=== PATIENT | female | born 1980 | race African-American/Black ===

== ENCOUNTER 2025-01-13 13:24 | Emergency (ER) | payer OTHER, SELFPAY ==
[2025-01-13 13:28] VITALS: BP 142/94
--- NOTE | 2025-01-13 14:18 | ED.GENMED ---
History of Present Illness
General
Chief Complaint: Breathing Problem
Time Seen by Provider: 01/13/25 14:18
History of Present Illness
History of Present Illness:
FOCUSED PAST MEDICAL HISTORY
- The patient has a history of hyperlipidemia
REVIEW OF OLD RECORDS
- No old records available for review
Note:
CHIEF COMPLAINT(S)
Difficulty breathing, sensation of throat constriction.
HISTORY OF PRESENT ILLNESS
The patient is a 44-year-old female with a history of a hysterectomy, presenting with difficulty breathing and a sensation of something in the throat for the past eight months. The symptoms began with a feeling of coldness in the throat, progressing
to a sensation of breathing difficulty when sitting up, described as 'gasping for air.' The patient notes that laying down aggravates the feeling of something in the throat. On the right side of the throat, the patient reports feeling a lump and
experiences difficulty swallowing food, sometimes choking as it goes down. A computed tomography (CT) scan of the neck performed earlier in December revealed no abnormalities. An ear, nose, and throat (ENT) specialist performed a swallow test, which
was unremarkable. Despite these evaluations, the patient continues to experience symptoms. The patient is concerned about choking when at home alone. The patient has been intermittently using esomeprazole at a dosage increased to 80 mg by a
gastrointestinal (GI) specialist, without noticeable improvement in symptoms. There is a history of family members having similar issues without resolution. The patient has also been seen by a brand ambassador, who indicated that the trachea might not
have been adequately assessed on prior imaging.
SOCIAL DETERMINANTS OF HEALTH
The patient expresses anxiety about being alone at home due to difficulty breathing and potential choking, indicating stress factors related to household environment and lack of immediate support.
PHYSICAL EXAM
-- General: Well appearing in no distress, room air sats are 100% even when I lay her down flat
- HEENT: Moist oral mucosa, there are no palpable masses, no lymphadenopathy in the cervical region or supraclavicular region, I did question some tightness of the right peritracheal musculature
- Cardiovascular: No murmurs, normal heart rate, regular rhythm, No chest wall tenderness
- Pulmonary: No respiratory distress, breath sounds are clear and equal
- Abdomen: Soft with no peritoneal signs, no tenderness
- Neurologic: Excellent strength all extremities, no coordination deficits
- Psychiatric: Appropriate mental status, normal insight and judgement
- Extremities: Nontender, no edema, moves all extremities equally
- Skin: No rash, no lesions
PLAN
- Perform a CT scan of the neck and chest to thoroughly evaluate any structural abnormalities including both the trachea and esophagus.
- Obtain basic blood work to rule out any systemic causes for the symptoms.
DIFFERENTIAL DIAGNOSIS
The Differential Diagnosis includes, in no particular order and is not limited to:
- Gastroesophageal reflux disease (GERD)
- Laryngeal or tracheal structural abnormality
- Pharyngeal dysphagia
- Thyroid abnormalities
- Neuromuscular disorder affecting swallowing
- Anxiety-induced hyperventilation
- Allergy-related laryngeal edema
- Foreign body sensation due to previous muscle spasm or GERD
- Subclinical malignancy
- Vocal cord dysfunction
SUMMARY OF ENCOUNTER
The patient presented to the emergency department with chronic symptoms of throat constriction and difficulty breathing, unrelieved by previous interventions, including high-dose esomeprazole. Given the patient�s medical history and symptoms, a CT
of the neck and chest was ordered to further evaluate any potential structural abnormalities.
DISPOSITION
Pending further evaluation, the patient remains under observation for CT scan results.
MEDICATION RECONCILIATION
- Esomeprazole 80 mg, prescribed by GI specialist for GERD-like symptoms.
MEDICAL DECISION MAKING
- Number and Complexity of Problems Addressed: Chronic conditions affecting care include potential GERD and structural concerns.
- Data:
- Category 1: Independent review of previous CT scans showing no abnormalities. Review of ENT records indicating no significant findings.
- Category 2: Independent interpretation of symptoms consistent with GERD and structural abnormalities; continued airway assessment due to pulmonology concern.
- Category 3: None discussed.
- Risk: Consideration of admission/observation given the complexity and risk of the patient�s presenting complaint and underlying concerns, pending emergency evaluation results and monitoring of symptoms with continued close follow-up.
RADIOLOGY
- Imaging of the neck shows some mild adenoidal hypertrophy but otherwise unremarkable, there is no sign of an obstructing mass, no evidence of abscess formation. The narrowest portion of the airway measures 7 mm.
Of note, based on vital signs and PERC rule, no evidence for PE
LABS
- White count hemoglobin normal, chemistries unremarkable,
UPDATE
-SUMMARY OF ENCOUNTER
The patient presented with chronic symptoms of difficulty breathing and a sensation of throat constriction. A comprehensive CT scan from the neck through the chest was conducted, revealing no structural abnormalities and a normal airway. Blood work
was also reported as normal. The patients oxygen saturation was consistently at 100%. Despite reassurance from imaging studies, the exact cause of symptoms remains undetermined. The patient was advised to continue follow-up with an ear, nose, and
throat specialist for further evaluation.
PLAN
The patient was given discharge paperwork with a suggestion to follow up with an ear, nose, and throat specialist. Continued use of ice was recommended for symptom management, along with time for natural resolution. The patient will be provided with
contact information for another ENT specialist, Dr. Ward, for further evaluation.
INDEPENDENT REVIEW OF LABS AND INTERPRETATION OF TESTS
My independent review of blood work indicates all results were within normal limits. My independent interpretation of the CT scan confirmed normal airway and no structural abnormalities down through the chest, aligning with the radiologist�s report.
PATIENT EDUCATION AND COUNSELING
The patient was educated on the normalcy of the imaging findings and the likelihood of symptoms possibly involving stress or anxiety components. Instructions were provided for continuing with ice as a symptomatic measure and the importance of ENT
follow-up for potential further investigations.
FOLLOW-UP INSTRUCTIONS
The patient was advised to follow up with an ENT specialist, Dr. Ward, for further evaluation and management.
MEDICATION RECONCILIATION
No new medications were prescribed or administered during the visit.
MEDICAL DECISION MAKING
- Number and Complexity of Problems Addressed: Chronic conditions affecting care include potential GERD, structural concerns, and the possibility of anxiety-related breathing difficulty. Differential diagnosis considerations included GERD, laryngeal
or tracheal structural abnormality, pharyngeal dysphagia, thyroid abnormalities, neuromuscular disorder affecting swallowing, anxiety-induced hyperventilation, allergy-related laryngeal edema, foreign body sensation due to previous muscle spasm or
GERD, subclinical malignancy, and vocal cord dysfunction.
- Data:
- Category 1: Reviewed lab tests showing normal results. Independently interpreted CT imaging, confirming normal airway and absence of structural abnormalities.
- Category 2: No additional history was required from other sources. The patient�s prior tests and imaging were comprehensively reviewed.
- Category 3: No external discussion of management or testing interpretation required at this time.
- Risk: Consideration of admission/observation was initially evaluated but determined unnecessary as CT imaging was reassuring, oxygen levels were stable, and no acute life-threatening processes were identified. Social determinants of health,
including the patients anxiety about being alone, were considered in the management plan.
DIAGNOSIS
- R06.02 - Shortness of breath
- R09.89 - Other specified symptoms and signs involving the circulatory and respiratory systems
Phy Exam
Physical Exam
Physical Exam:
See HPI
Scores
Heart Failure Risk
Heart Failure Risk Score: Not Applicable
PERC Rule Criteria
Age <50 years: Yes
HR <100 bpm: Yes
Room air oxygen sat >94%: Yes
History of DVT or PE: No
Recent trauma or surgery: No
Hemoptysis: No
Exogenous estrogen: No
Clinical signs suggestive of DVT: No
: No
Considered low risk for PE: Yes
PERC Score: 0
PE can be excluded by PERC: Yes
Course
Orders/Labs/Results
Orders:
Orders
01/13/25 14:29
CT Chest With Iv Contrast Urgent
Comment:
Reason For Exam: senses a mass R lower paratracheal; hysterectomy
CT Neck With Iv Contrast Urgent
Comment:
Reason For Exam: senses a mass R lower paratracheal; hysterectomy
01/13/25 15:00
Complete Blood Count/With Diff Urgent
Comprehensive Metabolic Panel Urgent
NT-proBNP Urgent
Abnormal Lab Results
01/13/25
15:00
MCV 77.8 L fL
(81.0-99.0)
MCH 25.8 L pg
(27.0-31.0)
RDW 15.5 H %
(11.5-14.5)
Absolute Lymphs (auto) 3.7 H 10^3/uL
(1.2-3.4)
Absolute Monos (auto) 0.8 H 10^3/uL
(0.1-0.6)
Glucose 100 H mg/dl
(70-99)
01/13/25 15:00
01/13/25 15:00
Vital Signs
Initial and Last Documented VS:
Initial Vital Signs
Temp Pulse Resp BP Pulse Ox
36.9 C 67 22 142/94 99
01/13/25 13:28 01/13/25 13:28 01/13/25 13:28 01/13/25 13:28 01/13/25 13:28
Last Documented Vital Signs
Temp Pulse Resp BP Pulse Ox
36.9 C 53 18 135/86 100
01/13/25 13:28 01/13/25 15:00 01/13/25 15:00 01/13/25 15:00 01/13/25 15:00
*Pulse Oximetry
SaO2: 99
Oxygen Mode of Delivery: Room air
Patient hypoxic: no
*Critical Care Note
Total Time (30-74mins, 75-104mins- exclusive of procedures): Not Applicable
ED Attending Note
-
Portions of this chart may have been created with voice recognition software.� Occasional wrong word or��sound alike� substitutions may have occurred due to the inherent limitations of voice recognition software.
Discharge Plan
Departure
Patient Disposition: Home (Routine Discharge)
Date of Disposition: 01/13/25
Time of Disposition: 18:27
Patient with high blood pressure during this ER visit?: Yes
Discharge Problem:
Anterior neck pain
Instructions: BLOOD PRESSURE
Prescriptions:
No Action
No Current Medications
0
Referrals:
Randy Hall DO [Family Provider, [facility]]
Victoriano Neves MD [Active, ENT]
Activity Restrictions/Additional Instructions:
CT NECK REPORT:
FINDINGS: The imaged skull base structures are unremarkable.
The salivary glands are within normal limits.
Paranasal sinuses are clear.
The fat and fascial planes are maintained. There is no significant lymphadenopathy in neck. The thyroid gland and imaged lungs are clear. There are no fluid collections to suggest an abscess. Prevertebral soft tissues appear normal. Epiglottis is
unremarkable. There is mild narrowing of the oropharynx due to adenoidal hypertrophy. This is circumferential. The narrowest portion of the airway measures 7 mm.
IMPRESSION: Mild adenoidal hypertrophy. Otherwise unremarkable exam.
No evidence of abscess formation nor obstructing mass.
CT CHEST REPORT:
There are no abnormal pleural or parenchymal pulmonary masses.
There is no significant parenchymal airspace disease.
There is no pleural effusion.
There are no abnormal mediastinal masses.
There is no hilar lymphadenopathy.
There is no mediastinal lymphadenopathy.
There is no axillary lymphadenopathy.
The cause of your symptoms is unclear. Return here if worse or other concerns. I have also given the contact information for local ENT Dr. Neves.
Interventions
Interventions:
*Risk Screen - Suicide Last Done: 01/13/25 13:28
*General Assessment Last Done: 01/13/25 13:28
*Neglect/Abuse Screening Last Done: 01/13/25 13:28
Discharge Date and Time
Print Language: ALBANIAN
[2025-01-13 14:29] VITALS: BP 131/82
[2025-01-13 15:00] VITALS: BP 135/86
[2025-01-13 15:01] VITALS: BMI 32.3
[2025-01-13 16:10] LABS: Hematocrit 37.4 % (37.0-47.0); Hemoglobin 12.4 g/dL (12.0-16.0); Mean Corp Hgb Conc. 33.2 g/dL (33.0-37.0); Mean Corpuscular Volume 77.8 fL (81.0-99.0); Nucleated Red Blood Cells % 0 %; Platelet Count 342 10^3/uL (130-400); Red Cell Dist. Width 15.5 % (11.5-14.5)
[2025-01-13 16:31] LABS: ALT (SGPT) 21 U/L (0-35); AST (SGOT) 17 U/L (14-36); Albumin 4.0 g/dl (3.5-5.0); Alkaline Phosphatase 70 U/L (38-126); Blood Urea Nitrogen 13 mg/dl (7-17); Calcium 9.6 mg/dl (8.4-10.2); Carbon Dioxide 26 mmol/L (22-30); Chloride 107 mmol/L (98-107); Estimated Creatinine Clearance 101 ml/min; Glucose 100 mg/dl (70-99); Potassium 4.2 mmol/L (3.5-5.1); Sodium 138 mmol/L (135-145); Total Protein 7.3 g/dl (6.3-8.2); eGFR > 60.00
== END 2025-01-13 18:58 | disposition home or self-care (01) ==
LOC: EMR 13:24
PROVIDERS: EMERGENCY PHYSICIAN Emergency Medicine; FAMILY PHYSICIAN Family Medicine
DX: M54.2 Cervicalgia (principal); J35.2 Hypertrophy of adenoids; R03.0 Elevated blood-pressure reading, without diagnosis of hypertension; E78.5 Hyperlipidemia, unspecified
CPT/HCPCS: 99284; 70491; 71260; 80053; 83880; 85025; Q9967